=== PATIENT | female | born 1965 | race Caucasian/White ===

== ENCOUNTER 2016-12-31 16:29 | Emergency (ER) | payer MEDICARE, MEDICAID ==
[2016-12-31] MEDS ORDERED: CEFTRIAXONE SODIUM 1 GM in IV NORMAL SALINE 50ML 50 ML IV ONE (17:00)
--- NOTE | 2016-12-31 17:12 | ED.ADGEN ---
Adult General HPI HPI Patient is a 51-year-old female with a history of chronic kidney disease was seen by a cancer genetic counselor earlier today and diagnosed with a urinary tract infection. He is asked to come to the emergency department so she can receive her first dose of antibiotics by IV. He is also present requested a noncontrast CT to rule out kidney stone due to her right flank pain. Patient had taken her usual home oxycodone for her chronic pain without much relief. She denies any fevers, chills, nausea, vomiting. Review of Systems Review of Systems Constitutional: Denies fever or chills [] Eyes: Denies change in visual acuity, redness, or eye pain [] HENT: Denies nasal congestion or sore throat [] Respiratory: Denies cough or shortness of breath [] Cardiovascular: No additional information not addressed in HPI [] GI: Denies abdominal pain, nausea, vomiting, bloody stools or diarrhea [] : Denies dysuria or hematuria [] Musculoskeletal: Denies back pain or joint pain [] Integument: Denies rash or skin lesions [] Neurologic: Denies headache, focal weakness or sensory changes [] Endocrine: Denies polyuria or polydipsia [] Current Medications Current Medications Current Medications Medications (Trade) Dose Ordered Sig/Adrian Start Time Stop Time Status Last Admin Dose Admin Ceftriaxone Sodium 1 gm/ Sodium Chloride 50 ml @ 100 mls/hr 1X ONCE 12/31/16 17:00 12/31/16 17:21 DC Hydromorphone HCl 1 mg 1 mg 1X ONCE 12/31/16 17:30 12/31/16 17:31 DC Levofloxacin/ Dextrose (LEVAQUIN 500mg PREMIX) 100 ml @ 100 mls/hr 1X ONCE 12/31/16 17:45 12/31/16 18:44 Sodium Chloride 1,000 ml @ 1,000 mls/hr 1X ONCE 12/31/16 17:30 12/31/16 18:29 Allergies Allergies Allergies Coded Allergies Type Severity Reaction Last Updated Verified Cephalosporins Allergy Unknown 12/31/16 Yes Penicillins Allergy Unknown 12/31/16 Yes acetaminophen Allergy Unknown 12/31/16 Yes amitriptyline Allergy Unknown 12/31/16 Yes carbamazepine Allergy Unknown 12/31/16 Yes codeine Allergy Unknown 12/31/16 Yes hydrocodone Allergy Unknown 12/31/16 Yes ketorolac Allergy Unknown 12/31/16 Yes oxcarbazepine Allergy Unknown 12/31/16 Yes quetiapine Allergy Unknown 12/31/16 Yes tramadol Allergy Unknown 12/31/16 Yes Physical Exam Physical Exam Constitutional: Well developed, well nourished, no acute distress, non-toxic appearance. [] HENT: Normocephalic, atraumatic, bilateral external ears normal, oropharynx moist, no oral exudates, nose normal. [] Eyes: PERRLA, EOMI, conjunctiva normal, no discharge. [] Neck: Normal range of motion, no tenderness, supple, no stridor. [] Cardiovascular:Heart rate regular rhythm, no murmur [] Lungs & Thorax: Bilateral breath sounds clear to auscultation [] Abdomen: Bowel sounds normal, soft, no tenderness, no masses, no pulsatile masses. [] Skin: Warm, dry, no erythema, no rash. [] Back: Right flank tenderness, no CVA tenderness. [] Extremities: No tenderness, no cyanosis, no clubbing, ROM intact, no edema. [] Neurologic: Alert and oriented X 3, normal motor function, normal sensory function, no focal deficits noted. [] Psychologic: Affect normal, judgement normal, mood normal. [] EKG EKG [] Radiology/Procedures Radiology/Procedures [PROCEDURE CT scan of the abdomen and pelvis without contrast 12/31/2016 HISTORY Right flank pain for 1 day. TECHNIQUE Unenhanced contiguous, 5 millimeter axial sections were obtained through the abdomen and pelvis. One or more of the following individualized dose reduction techniques were utilized for this study: 1. Automated exposure control. 2. Adjustment of the mA and/or kV according to patient size. 3. Use of iterative reconstruction technique. FINDINGS Images through the lung bases demonstrate minimal dependent subsegmental atelectasis bilaterally. The liver, spleen, pancreas, and adrenal glands are within normal limits. No renal or ureteral calculus is seen. A 7 millimeter rounded low attenuation structure is seen projecting laterally from the inferior aspect of the lower pole of the left kidney. This likely represents a cyst. There is no evidence of obstruction of either collecting system. Mild scattered atherosclerotic plaque formation is seen involving the abdominal aorta and its branches. The abdominal aorta tapers normally. The gallbladder is slightly contracted. No free fluid or free air is seen within the abdomen. There is no evidence of bowel obstruction. The appendix is not visualized. No inflammatory changes are seen surrounding the cecum. Images through the pelvis demonstrate the urinary bladder distended with urine. No distal ureteral calculus is seen. The patient is status post ventral hernia repair involving the lower midline abdomen. A small fat containing ventral hernia is seen inferior to this to the right of midline. This measures 3 centimeters in transverse diameter. No free fluid is seen within the pelvis. A few scattered diverticula are seen involving the sigmoid colon. No inflammatory changes are seen adjacent fat. Minimal S-shaped curvature of the thoracolumbar spine is seen. Degenerative changes are seen involving lower thoracic and throughout the lumbar spine and both hips. IMPRESSION No acute abnormality is seen. Electronically signed by: Lavon Brooks MD (Dec 31, 2016 17:26:23) DICTATED AND SIGNED BY: LAVON BROOKS MD DATE: 12/31/16 1726 CC: CARLOS MEZA MD; AIXA ROCHA MD ~] Course & Med Decision Making Course & Med Decision Making Pertinent Labs and Imaging studies reviewed. (See chart for details) Patient received IV fluids, Dilaudid, and Levaquin here in emergency department. We did get a CT scan without contrast. [] Final Impression Final Impression Urinary tract infection[] Problems: Dragon Disclaimer Dragon Disclaimer This electronic medical record was generated, in whole or in part, using a voice recognition dictation system. CARLOS MEZA MD Dec 31, 2016 17:12
--- NOTE | 2016-12-31 17:28 | RAD ---
PROCEDURE CT scan of the abdomen and pelvis without contrast 12/31/2016 HISTORY Right flank pain for 1 day. TECHNIQUE Unenhanced contiguous, 5 millimeter axial sections were obtained through the abdomen and pelvis. One or more of the following individualized dose reduction techniques were utilized for this study: 1. Automated exposure control. 2. Adjustment of the mA and/or kV according to patient size. 3. Use of iterative reconstruction technique. FINDINGS Images through the lung bases demonstrate minimal dependent subsegmental atelectasis bilaterally. The liver, spleen, pancreas, and adrenal glands are within normal limits. No renal or ureteral calculus is seen. A 7 millimeter rounded low attenuation structure is seen projecting laterally from the inferior aspect of the lower pole of the left kidney. This likely represents a cyst. There is no evidence of obstruction of either collecting system. Mild scattered atherosclerotic plaque formation is seen involving the abdominal aorta and its branches. The abdominal aorta tapers normally. The gallbladder is slightly contracted. No free fluid or free air is seen within the abdomen. There is no evidence of bowel obstruction. The appendix is not visualized. No inflammatory changes are seen surrounding the cecum. Images through the pelvis demonstrate the urinary bladder distended with urine. No distal ureteral calculus is seen. The patient is status post ventral hernia repair involving the lower midline abdomen. A small fat containing ventral hernia is seen inferior to this to the right of midline. This measures 3 centimeters in transverse diameter. No free fluid is seen within the pelvis. A few scattered diverticula are seen involving the sigmoid colon. No inflammatory changes are seen adjacent fat. Minimal S-shaped curvature of the thoracolumbar spine is seen. Degenerative changes are seen involving lower thoracic and throughout the lumbar spine and both hips. IMPRESSION No acute abnormality is seen. Electronically signed by: Lavon Schwartz MD (Dec 31, 2016 17:26:23)
[2016-12-31] MEDS ORDERED: HYDROMORPHONE PF 1 MG/ML DISP.SYRIN. IV ONE (17:30)
[2016-12-31] MEDS ORDERED: IV NORMAL SALINE 1,000ML 1,000 ML IV ONE (17:30)
[2016-12-31] MEDS ORDERED: CIPR500T94 PO (17:30)
[2016-12-31 18:51] VITALS: BP 118/69
== END 2016-12-31 18:52 | disposition home or self-care (01) ==
LOC: ER 16:29
DX: N39.0 Urinary tract infection, site not specified (principal); N18.9 Chronic kidney disease, unspecified; G89.29 Other chronic pain; Z88.0 Allergy status to penicillin; Z88.6 Allergy status to analgesic agent; Z88.1 Allergy status to other antibiotic agents; Z88.8 Allergy status to other drugs, medicaments and biological substances
CPT/HCPCS: 74176; 96365; 96375; 99284; J1170; J1956; 96361; 96374; J7030

== ENCOUNTER → 2017-08-07 | Outpatient (CLI) | payer MEDICARE, MEDICAID ==
[~2017-08-07] MED LIST: BUPIVACAINE MPF 0.25% 10 ML VIAL. ONE; CIPR500T94 PO; IV NORMAL SALINE 250ML 250 ML ONE; LIDOCAINE 1% PF 30 ML VIAL. ONE; MIDAZOLAM HCL PF 2 MG/2 ML VIAL. ONE; methylPREDNISolone ACETATE 40 MG/ML VIAL. ONE
== END | disposition home or self-care (01) ==
LOC: SURG 10:53
PROVIDERS: ATTEND Anesthesiology Pain Medicine
DX: M47.814 Spondylosis without myelopathy or radiculopathy, thoracic region (principal); E66.9 Obesity, unspecified; J44.9 Chronic obstructive pulmonary disease, unspecified; I10 Essential (primary) hypertension; I12.9 Hypertensive chronic kidney disease with stage 1 through stage 4 chronic kidney disease, or unspecified chronic kidney disease; N18.9 Chronic kidney disease, unspecified; Z72.0 Tobacco use
CPT/HCPCS: 64633; 64634; J1030; J2001; J2250; J3010; J3490; J7050; 64635; 64636

== ENCOUNTER → 2017-08-28 | Outpatient (CLI) | payer MEDICARE, MEDICAID ==
[~2017-08-28] MED LIST changes: -IV NORMAL SALINE 250ML 250 ML ONE; +IV RINGERS SOLUTION,LACTATED 1,000 ML IV ONE
== END | disposition home or self-care (01) ==
LOC: SURG 10:55
PROVIDERS: ATTEND Anesthesiology Pain Medicine
DX: M47.814 Spondylosis without myelopathy or radiculopathy, thoracic region (principal); E78.5 Hyperlipidemia, unspecified; N18.4 Chronic kidney disease, stage 4 (severe); Z98.890 Other specified postprocedural states; Z88.6 Allergy status to analgesic agent; Z88.3 Allergy status to other anti-infective agents; Z88.0 Allergy status to penicillin; Z88.8 Allergy status to other drugs, medicaments and biological substances
CPT/HCPCS: 64635; 64636; J1030; J2001; J2250; J3010; J3490; J7120; 99152

== ENCOUNTER → 2018-04-20 | Outpatient (CLI) | payer OTHER ==
[~2018-04-20] MED LIST changes: +IOHEXOL 300 MG/ML 50 ML VIAL. ONE; -IV RINGERS SOLUTION,LACTATED 1,000 ML IV ONE; -MIDAZOLAM HCL PF 2 MG/2 ML VIAL. ONE
== END | disposition home or self-care (01) ==
LOC: SURG 12:19
PROVIDERS: ATTEND Anesthesiology
DX: M46.1 Sacroiliitis, not elsewhere classified (principal); J45.909 Unspecified asthma, uncomplicated; Z87.01 Personal history of pneumonia (recurrent); Z87.891 Personal history of nicotine dependence; Z79.899 Other long term (current) drug therapy
CPT/HCPCS: 27096; J1030; J2001; J3490; Q9967

== ENCOUNTER → 2018-06-02 | Outpatient (CLI) | payer OTHER ==
[~2018-06-02] MED LIST changes: -BUPIVACAINE MPF 0.25% 10 ML VIAL. ONE; +BUPIVACAINE MPF 0.5% 30 ML VIAL. ONE; +methylPREDNISolone ACETATE 80 MG/ML VIAL. ONE
== END | disposition home or self-care (01) ==
LOC: SURG 14:21
PROVIDERS: ATTEND Anesthesiology Pain Medicine
DX: M16.11 Unilateral primary osteoarthritis, right hip (principal); M47.816 Spondylosis without myelopathy or radiculopathy, lumbar region; M46.1 Sacroiliitis, not elsewhere classified; I10 Essential (primary) hypertension; J44.9 Chronic obstructive pulmonary disease, unspecified; G47.30 Sleep apnea, unspecified; K21.9 Gastro-esophageal reflux disease without esophagitis; Z87.01 Personal history of pneumonia (recurrent); M19.90 Unspecified osteoarthritis, unspecified site; D64.9 Anemia, unspecified; Z88.0 Allergy status to penicillin; Z88.5 Allergy status to narcotic agent; Z88.1 Allergy status to other antibiotic agents; Z88.8 Allergy status to other drugs, medicaments and biological substances
CPT/HCPCS: 20610; 77002; J1030; J1040; J2001; J3490; Q9967; 20611

== ENCOUNTER → 2018-07-07 | Outpatient (CLI) | payer OTHER ==
[~2018-07-07] MED LIST changes: +0.9 % SODIUM CHLORIDE 10 ML VIAL ONE; +BUPIVACAINE MPF 0.25% 30 ML VIAL. ONE; -BUPIVACAINE MPF 0.5% 30 ML VIAL. ONE; +DEXAMETHASONE SOD PHOS 10 MG/ML VIAL ONE; -methylPREDNISolone ACETATE 40 MG/ML VIAL. ONE; -methylPREDNISolone ACETATE 80 MG/ML VIAL. ONE
== END | disposition home or self-care (01) ==
LOC: SURG 14:29
PROVIDERS: ATTEND Anesthesiology Pain Medicine
DX: M54.16 Radiculopathy, lumbar region (principal); F31.9 Bipolar disorder, unspecified; E78.5 Hyperlipidemia, unspecified; K21.9 Gastro-esophageal reflux disease without esophagitis; J44.9 Chronic obstructive pulmonary disease, unspecified; I12.9 Hypertensive chronic kidney disease with stage 1 through stage 4 chronic kidney disease, or unspecified chronic kidney disease; N18.4 Chronic kidney disease, stage 4 (severe); Z90.710 Acquired absence of both cervix and uterus; Z83.3 Family history of diabetes mellitus; Z79.899 Other long term (current) drug therapy; Z79.01 Long term (current) use of anticoagulants; Z88.5 Allergy status to narcotic agent; Z88.0 Allergy status to penicillin; Z88.1 Allergy status to other antibiotic agents; Z88.8 Allergy status to other drugs, medicaments and biological substances; Z88.6 Allergy status to analgesic agent; G47.30 Sleep apnea, unspecified; Z87.01 Personal history of pneumonia (recurrent); I25.2 Old myocardial infarction; M19.90 Unspecified osteoarthritis, unspecified site; D64.9 Anemia, unspecified
CPT/HCPCS: 64483; 64484; J1100; J2001; J3490; Q9967

== ENCOUNTER → 2018-08-27 | Outpatient (CLI) | payer OTHER ==
[~2018-08-27] MED LIST changes: -0.9 % SODIUM CHLORIDE 10 ML VIAL ONE; -DEXAMETHASONE SOD PHOS 10 MG/ML VIAL ONE; +DEXAMETHASONE SOD PHOS 4 MG/ML VIAL ONE; -IOHEXOL 300 MG/ML 50 ML VIAL. ONE
== END | disposition home or self-care (01) ==
LOC: SURG 11:19
PROVIDERS: ATTEND Anesthesiology Pain Medicine
DX: M47.816 Spondylosis without myelopathy or radiculopathy, lumbar region (principal); J45.909 Unspecified asthma, uncomplicated; J44.9 Chronic obstructive pulmonary disease, unspecified; G47.30 Sleep apnea, unspecified; I10 Essential (primary) hypertension; K21.9 Gastro-esophageal reflux disease without esophagitis; N19 Unspecified kidney failure; Z79.899 Other long term (current) drug therapy
CPT/HCPCS: 64493; 64494; 64495; J1100; J2001; J3490

== ENCOUNTER → 2018-09-10 | Outpatient (CLI) | payer OTHER | END | disposition home or self-care (01) | LOC: SURG 11:17 | PROVIDERS: ATTEND Anesthesiology Pain Medicine | DX: M47.816 Spondylosis without myelopathy or radiculopathy, lumbar region (principal); Z88.0 Allergy status to penicillin; Z88.1 Allergy status to other antibiotic agents; Z88.5 Allergy status to narcotic agent; Z88.8 Allergy status to other drugs, medicaments and biological substances; F31.9 Bipolar disorder, unspecified; E78.5 Hyperlipidemia, unspecified; N18.4 Chronic kidney disease, stage 4 (severe); Z90.710 Acquired absence of both cervix and uterus; Z83.3 Family history of diabetes mellitus; Z79.899 Other long term (current) drug therapy; Z79.01 Long term (current) use of anticoagulants | CPT/HCPCS: 64493; 64494; J1100; J2001; J3490; 77002 ==

== ENCOUNTER → 2018-10-22 | Day surgery (SDC) | payer OTHER ==
[~2018-10-22] MED LIST changes: +ALBU2.5V8 INH; +ALLO100T PO; +ALPR0.5T6 PO; +ARIP30TA4 PO; +ASPI81TA50 PO; +BUPIVACAINE MPF 0.25% 10 ML VIAL. ONE; -BUPIVACAINE MPF 0.25% 30 ML VIAL. ONE; -DEXAMETHASONE SOD PHOS 4 MG/ML VIAL ONE; +FENO145T30 PO; +LAMO200T2 PO; +METO25TA4 PO; +MIDAZOLAM HCL PF 2 MG/2 ML VIAL. IV ONE; +MIDAZOLAM HCL PF 2 MG/2 ML VIAL. ONE; +MIRA50TA PO; +MONT10TA9 PO; +OXYC10TA PO; +POTA20TA4 PO; +RANI150T21 PO; +SIMV80TA17 PO; +TOPI25TA7 PO; +TORS20TA2 PO; +VENL150C PO; +WARF2TAB PO; +ZALE5CAP PO; +methylPREDNISolone ACETATE 40 MG/ML VIAL. ONE
[2018-10-22 09:29] VITALS: BP 114/76
== END | disposition home or self-care (01) ==
LOC: SURG 07:30
PROVIDERS: ATTEND Anesthesiology Pain Medicine
DX: M47.816 Spondylosis without myelopathy or radiculopathy, lumbar region (principal); F31.9 Bipolar disorder, unspecified; E78.5 Hyperlipidemia, unspecified; I12.9 Hypertensive chronic kidney disease with stage 1 through stage 4 chronic kidney disease, or unspecified chronic kidney disease; N18.4 Chronic kidney disease, stage 4 (severe); I25.2 Old myocardial infarction; J44.9 Chronic obstructive pulmonary disease, unspecified; Z90.710 Acquired absence of both cervix and uterus; Z83.3 Family history of diabetes mellitus; Z79.899 Other long term (current) drug therapy; Z79.01 Long term (current) use of anticoagulants; Z88.0 Allergy status to penicillin; Z88.1 Allergy status to other antibiotic agents; Z88.6 Allergy status to analgesic agent; Z88.8 Allergy status to other drugs, medicaments and biological substances; Z88.5 Allergy status to narcotic agent; G47.30 Sleep apnea, unspecified; Z87.01 Personal history of pneumonia (recurrent); M19.90 Unspecified osteoarthritis, unspecified site; D64.9 Anemia, unspecified; F17.210 Nicotine dependence, cigarettes, uncomplicated
CPT/HCPCS: 64635; 64636; 99152; J1030; J2001; J2250; J3010; J3490

== ENCOUNTER 2021-01-11 16:32 | Emergency (ER) | payer OTHER, MEDICAID ==
[~2021-01-11] VITALS: Ht 162.6 cm; Wt 138.1 kg
[~2021-01-11 16:32] MED LIST changes: -BUPIVACAINE MPF 0.25% 10 ML VIAL. ONE; +FENO145T3 PO; -FENO145T30 PO; -LAMO200T2 PO; +LAMO200T6 PO; -LIDOCAINE 1% PF 30 ML VIAL. ONE; -MIDAZOLAM HCL PF 2 MG/2 ML VIAL. IV ONE; -MIDAZOLAM HCL PF 2 MG/2 ML VIAL. ONE; +MIRA25TA PO; -MIRA50TA PO; +MONT10TA80 PO; -MONT10TA9 PO; +RANI-376 PO; -RANI150T21 PO; -methylPREDNISolone ACETATE 40 MG/ML VIAL. ONE
--- NOTE | 2021-01-11 17:09 | PHYS DOC ---
Past History Past Medical History: Anxiety, Renal Disease, Other Past Surgical History: Hysterectomy, Other Alcohol Use: Rarely Drug Use: None General Adult EDM: Chief Complaint: ELBOW PROBLEM HPI: HPI: Patient is a 55-year-old female coming in for right elbow pain. States she felt forward onto her elbows 2 days ago" of her elbows. Denies any head injury or LOC. Patient's has an abrasion to her left elbow but is continued to have pain in her right elbow that is not getting better. Patient is taking Tylenol. Denies any paresthesias. Patient is right-handed. Is unsure of her last tetanus vaccine but thinks it might have been more than 5 years ago Review of Systems: Review of Systems: All other systems within normal limits except for as noted in the HPI Allergies: Allergies: Allergies Coded Allergies Type Severity Reaction Last Updated Verified Cephalosporins Allergy Unknown 12/31/16 Yes Penicillins Allergy Unknown 12/31/16 Yes acetaminophen Allergy Unknown 12/31/16 Yes amitriptyline Allergy Unknown 12/31/16 Yes carbamazepine Allergy Unknown 12/31/16 Yes codeine Allergy Unknown 12/31/16 Yes hydrocodone Allergy Unknown 12/31/16 Yes ketorolac Allergy Unknown 12/31/16 Yes oxcarbazepine Allergy Unknown 12/31/16 Yes quetiapine Allergy Unknown 12/31/16 Yes tramadol Allergy Unknown 12/31/16 Yes Physical Exam: PE: Constitutional: Well developed, well nourished, no acute distress, non-toxic appearance. [] HENT: Normocephalic, atraumatic, bilateral external ears normal, nose normal. [] Eyes: PERRLA, conjunctiva normal, no discharge. [] Neck: No rigidity, supple, no stridor. [] Cardiovascular: Regular rate and rhythm, brisk cap refill [] Lungs & Thorax: Non labored symmetric respirations, no tachypnea or respiratory distress [] Abdomen: Soft, nondistended. Skin: Warm, dry, no erythema, no rash. Abrasion to left elbow [] Back: Unremarkable Extremities: No deformities, range of motion grossly intact, no lower extremity edema. Right elbow exam, tenderness over olecranon, mild swelling. Neurovascular intact distal. [] Neurologic: Alert and oriented X 3, no focal deficits noted. [] Psychologic: Affect normal, judgement normal, mood normal. [] EKG: EKG: [] Radiology/Procedures: Radiology/Procedures: EXAM: Right elbow, 3 views. HISTORY: Pain and swelling. COMPARISON: None. FINDINGS: 3 views of the right elbow are obtained. There aren't small ossicles along the lateral upper condyle likely due to sequela of prior epicondylitis. There is no acute fracture, dislocation or subluxation. There is no elbow effusion. IMPRESSION: 1. No acute osseous finding. 2. Findings suggesting the sequela of prior lateral epicondylitis.[] Heart Score: C/O Chest Pain: No Risk Factors: Risk Factors: DM, Current or recent (<one month) smoker, HTN, HLP, family history of CAD, obesity. Risk Scores: Score 0 - 3: 2.5% MACE over next 6 weeks - Discharge Home Score 4 - 6: 20.3% MACE over next 6 weeks - Admit for Clinical Observation Score 7 - 10: 72.7% MACE over next 6 weeks - Early Invasive Strategies Course & Med Decision Making: Course & Med Decision Making Pertinent Labs and Imaging studies reviewed. (See chart for details) Placed in sling, patient has full range of motion of her elbow. Tetanus updated. Discussed follow-up with primary care. Radiologist reading x-rays as no acute fracture. [] Dragon Disclaimer: Dragon Disclaimer: This electronic medical record was generated, in whole or in part, using a voice recognition dictation system. Departure Departure: Impression: Primary Impression: Fall Additional Impression: Injury of right elbow Disposition: HOME / SELF CARE / HOMELESS Condition: STABLE Referrals: VINEET BREWER MD (PCP) Patient Instructions: RICE - Routine Care for Injuries Additional Instructions: Wear your sling as much as tolerated. May take off if pain resolves. Follow-up with your primary care provider if pain has not resolved to rule out the possibility of occult fracture and have repeat imaging done in 1 week. Scripts Morphine Sulfate (MORPHINE SULFATE) 15 Mg Tablet 1 TAB PO BID PRN for PAIN for 3 Days, #6 TAB Prov: YISEL PLATT MD 01/11/21 YISEL PLATT MD Jan 11, 2021 17:09
--- NOTE | 2021-01-11 17:21 | RAD ---
EXAM: Right elbow, 3 views. HISTORY: Pain and swelling. COMPARISON: None. FINDINGS: 3 views of the right elbow are obtained. There aren't small ossicles along the lateral uppe r condyle likely due to sequela of prior epicondylitis. There is no acute fracture, dislocation or chery bluxation. There is no elbow effusion. IMPRESSION: 1. No acute osseous finding. 2. Findings suggesting the sequela of prior lateral epicondylitis. Electronically signed by: Leah Vick MD (01/11/2021 5:18 PM) [facility]
[2021-01-11] MEDS ORDERED: DIPH,PERTUSS(ACELL),TET VAC/PF 0.5 ML SYRINGE. VAX IM ONE (17:30)
[2021-01-11] MEDS ORDERED: MORP15TA PO (17:44)
[2021-01-11 17:49] VITALS: BP 132/85
== END 2021-01-11 17:49 | disposition home or self-care (01) ==
LOC: ER 16:32
DX: S50.311A Abrasion of right elbow, initial encounter (principal); Z88.0 Allergy status to penicillin; Z88.5 Allergy status to narcotic agent; Z88.6 Allergy status to analgesic agent; Z88.8 Allergy status to other drugs, medicaments and biological substances; W18.39XA Other fall on same level, initial encounter; Y93.89 Activity, other specified; Y92.89 Other specified places as the place of occurrence of the external cause; Y99.8 Other external cause status
CPT/HCPCS: 73080; 90471; 90715; 96374; 96375; 99283

== ENCOUNTER 2021-05-24 14:57 | Emergency (ER) | payer OTHER, MEDICAID ==
[~2021-05-24] VITALS: Ht 160 cm; Wt 137.3 kg
[~2021-05-24 14:57] MED LIST changes: +MORP15TA PO
[2021-05-24 15:11] VITALS: BP 151/73
--- NOTE | 2021-05-24 15:25 | PHYS DOC ---
Past History Past Medical History: Anxiety, Bipolar, Depression, Hypertension, Renal Disease, Other Additional Past Medical Histor: stage 4 kidney disease (DEBORA DAVID APRN) Past Surgical History: No Surgical History Additional Past Surgical Histo: right knee (DEBORA DAVID APRN) Alcohol Use: None Drug Use: None (DEBORA DAVID APRN) General Adult EDM: Chief Complaint: FEVER HPI: HPI: Patient is a 56-year-old female being seen in the ER for a fever for 3 hours. Patient reports that she checked her temperature at home and it was 101 degrees so she took Tylenol. She was told by her primary care provider that since she h as stage IV kidney disease if she develops a fever she must go to the ER. Patient is currently afebrile. Her vital signs are stable. Patient denies cough, sick exposures, nausea, vomiting, loss of taste or smell, shortness of breath, chest pain. Patient is vaccinated for COVID-19. (DEBORA DAVID APRN) Review of Systems: Review of Systems: 14 body systems of the review of systems have been reviewed. See HPI for pertinent positive and negative responses, otherwise all other systems are negative, nonpertinent or noncontributory (DEBORA DAVID APRN) Allergies: Allergies: Allergies Coded Allergies Type Severity Reaction Last Updated Verified Cephalosporins Allergy Unknown 12/31/16 Yes NSAIDS (Non-Steroidal Anti-Inflamma Allergy Unknown 01/11/21 Yes Penicillins Allergy Unknown 01/11/21 Yes acetaminophen Allergy Unknown 12/31/16 Yes amitriptyline Allergy Unknown 12/31/16 Yes carbamazepine Allergy Unknown 01/11/21 Yes codeine Allergy Unknown 01/11/21 Yes hydrocodone Allergy Unknown 12/31/16 Yes ketorolac Allergy Unknown 12/31/16 Yes oxcarbazepine Allergy Unknown 12/31/16 Yes quetiapine Allergy Unknown 12/31/16 Yes tramadol Allergy Unknown 12/31/16 Yes Uncoded Allergies Type Severity Reaction Last Updated Verified POLYSORBATES Allergy Unknown 01/11/21 RED DYES Allergy Unknown 01/11/21 TARTRAZINE Allergy Unknown 01/11/21 TRICYCLIC ANTIDEPRESSANTS Allergy Unknown 01/11/21 (DEBORA DAVID APRN) Physical Exam: PE: Constitutional: Well developed, well nourished, no acute distress, non-toxic appearance. [] HENT: Normocephalic, atraumatic, bilateral external ears normal, oropharynx moist, no oral exudates, nose normal. [] Eyes: PERRL, EOMI, conjunctiva normal, no discharge. [] Neck: Normal range of motion, no stridor Cardiovascular:Heart rate regular rhythm, no murmur [] Lungs & Thorax: Bilateral breath sounds clear to auscultation [] Abdomen: Bowel sounds normal, soft, no tenderness, no masses, no pulsatile masses. [] Skin: Warm, dry, no erythema, no rash. [] Back: Normal range of motion Extremities: No tenderness, no cyanosis, no clubbing, ROM intact, no edema. [] Neurologic: Alert and oriented X 3, normal motor function, normal sensory function, no focal deficits noted. [] Psychologic: Affect normal, judgement normal, mood normal. [] (DEBORA DAVID APRN) Current Patient Data: Labs: Laboratory Tests Test 05/24/21 15:25 White Blood Count 8.4 x10^3/uL Red Blood Count 3.53 x10^6/uL Hemoglobin 11.6 g/dL Hematocrit 34.3 % Mean Corpuscular Volume 97 fL Mean Corpuscular Hemoglobin 33 pg Mean Corpuscular Hemoglobin Concent 34 g/dL Red Cell Distribution Width 13.7 % Platelet Count 223 x10^3/uL Neutrophils (%) (Auto) 61 % Lymphocytes (%) (Auto) 27 % Monocytes (%) (Auto) 8 % Eosinophils (%) (Auto) 4 % Basophils (%) (Auto) 1 % Neutrophils # (Auto) 5.1 x10^3uL Lymphocytes # (Auto) 2.3 x10^3/uL Monocytes # (Auto) 0.7 x10^3/uL Eosinophils # (Auto) 0.3 x10^3/uL Basophils # (Auto) 0.1 x10^3/uL Sodium Level 129 mmol/L Potassium Level 3.7 mmol/L Chloride Level 91 mmol/L Carbon Dioxide Level 34 mmol/L Anion Gap 4 Blood Urea Nitrogen 63 mg/dL Creatinine 2.5 mg/dL Estimated GFR (Cockcroft-Gault) 19.8 BUN/Creatinine Ratio 25 Glucose Level 95 mg/dL Calcium Level 9.2 mg/dL Total Bilirubin 0.4 mg/dL Aspartate Amino Transf (AST/SGOT) 36 U/L Alanine Aminotransferase (ALT/SGPT) 47 U/L Alkaline Phosphatase 74 U/L Total Protein 6.5 g/dL Albumin 3.4 g/dL Albumin/Globulin Ratio 1.1 Vital Signs: Vital Signs Date Time Temp Pulse Resp B/P (MAP) Pulse Ox O2 Delivery O2 Flow Rate FiO2 05/24/21 15:11 98.4 85 16 151/73 94 Room Air (DEBORA DAVID APRN) EKG: EKG: [] (DEBORA DAVID APRN) Radiology/Procedures: Radiology/Procedures: [] (DEBORA DAVID APRN) Heart Score: C/O Chest Pain: No Risk Factors: Risk Factors: DM, Current or recent (<one month) smoker, HTN, HLP, family history of CAD, obesity. Risk Scores: Score 0 - 3: 2.5% MACE over next 6 weeks - Discharge Home Score 4 - 6: 20.3% MACE over next 6 weeks - Admit for Clinical Observation Score 7 - 10: 72.7% MACE over next 6 weeks - Early Invasive Strategies (DEBORA DAVID APRN) Course & Med Decision Making: Course & Med Decision Making Pertinent Labs and Imaging studies reviewed. (See chart for details) Patient is a 56-year-old female being seen in the ER for a fever. Work-up in the ER consisted of Covid testing. Patient will be notified of those results when they become available. Patient also had blood work done. Lab work was consistent with renal failure. Patient is able to tolerate fluids. Patient advised to increase fluids and rest. Patient advised to take Tylenol if she develops a fever at home. Patient advised to follow-up with primary care provider. I discussed with patient all findings and diagnostic testing as well as the need to follow-up with PCP for further evaluation and treatment or return to the ER if any new or worsening symptoms. Strict return precautions were also discussed at length. Patient voiced understanding and agreement with the plan. Patient is hemodynamically stable at the time of disposition. (DEBORA DAVID APRN) Course & Med Decision Making I was the Attending physician on the above date of service of this patient. This patient was evaluated, examined, treated, and dispositioned from the emergency department by the mid-level practitioner. I reviewed case with SHREDDER OPERATOR. Patient hemodynamically stable and asymptomatic. Kidney disease is chronic. No indication for further diagnostic work-up and/or requirement for admission at present Electronically signed, Red Martin DO (RED MARTIN DO) Renetta Disclaimer: Renetta Disclaimer: This electronic medical record was generated, in whole or in part, using a voice recognition dictation system. (DEBORA DAVID MANAGER FITNESS) Departure Departure: Impression: Primary Impression: Person under investigation for COVID-19 Additional Impression: Chronic renal failure Qualified Codes: N18.9 - Chronic kidney disease, unspecified Disposition: HOME / SELF CARE / HOMELESS Condition: GOOD Referrals: VINEET BREWER MD (PCP) Patient Instructions: Fever Additional Instructions: You are seen in the ER today for fever. Your vital signs were stable and your afebrile here. Your work-up is consistent with chronic renal failure. You were tested today for COVID-19. You will be notified of these results when they become available in approximately 2 days. Please self isolate until you receive these results. Please increase your fluids at home. You can continue to take Tylenol as needed for fevers at home. You will need to follow-up with your primary care provider tomorrow regarding your ER visit. If you develop fevers that are refractory to treatment, intractable nausea or vomiting, inability to tolerate oral intake, shortness of breath, chest pain, cough please return to the ER. EMERGENCY DEPARTMENT GENERAL DISCHARGE INSTRUCTIONS Thank you for coming to [facility] ([facility]) today and trusting us with you care. We trust that you had a positivie experience in our Emergency Department. If you wish to speak to the department management, you may call the director at [phone]. YOUR FOLLOW UP INSTRUCTIONS ARE FOLLOWS: 1. Do you have a private Doctor? If you do not have a private doctor, please ask for a resource list of physicians or clinics that may be able to assist you with follow up care. 2. The Emergency Physician has interpreted your x-rays. The X-Ray specialist will also review them. If there is a change in the findings, you will be notified in 48 hours when at all possible. 3. A lab test or culture has been done, your results will be reviewed and you will be notified if you need a change in treatment. ADDITIONAL INSTRUCTIONS AND INFORMATION: 1. Your care today has been supervised by a physician who is specially trained in emergency care. Many problems require more than one evaluation for a complete diagnosis and treatment. We recommend that you schedule your follow up appointment as recommended to ensure complete treatment of you illness or injury. If you are unable to obtain follow up care and continue to have a problem, or if your condition worsens, we recommend that you return to the ED. 2. We are not able to safely determine your condition over the phone nor are we able to give sound medical advice over the phone. For these safety reasons, if you call for medical advice we will ask you to come to the ED for further evaluation. 3. If you have any questions regarding these discharge instructions please call the ED at [phone]. SAFETY INFORMATION: In the interest of safety, wellness, and injury prevention; we encourage you to wear your sealbelt, if you smoke; quite smoking, and we encourage family to use a p rotective helmet for bicycling and other sporting events that present an increased risk for head injury. IF YOUR SYMPTOMS WORSEN OR NEW SYMPTOMS DEVELOP, OR YOU HAVE CONCERNS ABOUT YOUR CONDITION; OR IF YOUR CONDITION WORSENS WHILE YOU ARE WAITING FOR YOUR FOLLOW UP APPOINTMENT; EITHER CONTACT YOUR PRIMARY CARE DOCTOR, THE PHYSICIAN WHOSE NAME AND NUMBER YOU WERE GIVEN, OR RETURN TO THE ED IMMEDIATELY. DEBORA DAVID APRN May 24, 2021 15:25 RED MARTIN DO May 25, 2021 06:15
[2021-05-24 15:42] LABS: BASO # 0.1 x10^3/uL (0.0-0.2); BASO % 1 % (0-3); EOS # 0.3 x10^3/uL (0.0-0.7); EOS % 4 % (0-3); HEMATOCRIT 34.3 % (36.0-47.0); HEMOGLOBIN 11.6 g/dL (12.0-15.5); LYMPH # 2.3 x10^3/uL (1.0-4.8); LYMPH % 27 % (24-48); MEAN CORPUSCULAR HEMOGLOBIN 33 pg (25-35); MEAN CORPUSCULAR HGB CONC 34 g/dL (31-37); MEAN CORPUSCULAR VOLUME 97 fL (79-100); MONO # 0.7 x10^3/uL (0.0-1.1); MONO % 8 % (0-9); NEUT # 5.1 x10^3uL (1.8-7.7); NEUT % 61 % (31-73); PLATELET COUNT 223 x10^3/uL (140-400); RED BLOOD COUNT 3.53 x10^6/uL (3.50-5.40); RED CELL DISTRIBUTION WIDTH 13.7 % (11.5-14.5); WHITE BLOOD COUNT 8.4 x10^3/uL (4.0-11.0)
[2021-05-24 15:49] LABS: CALCIUM 9.2 mg/dL (8.5-10.1); CREATININE 2.5 mg/dL (0.6-1.0); GFR 19.8; POTASSIUM 3.7 mmol/L (3.5-5.1)
[2021-05-24 15:53] LABS: ALBUMIN 3.4 g/dL (3.4-5.0); ALBUMIN/GLOBULIN RATIO 1.1 (1.0-1.7); TOTAL BILIRUBIN 0.4 mg/dL (0.2-1.0); TOTAL PROTEIN 6.5 g/dL (6.4-8.2)
== END 2021-05-24 16:12 | disposition home or self-care (01) ==
LOC: ER 14:57
DX: I12.9 Hypertensive chronic kidney disease with stage 1 through stage 4 chronic kidney disease, or unspecified chronic kidney disease (principal); N18.4 Chronic kidney disease, stage 4 (severe); Z20.822 Contact with and (suspected) exposure to COVID-19; Z88.1 Allergy status to other antibiotic agents; Z88.6 Allergy status to analgesic agent; Z88.0 Allergy status to penicillin; Z88.5 Allergy status to narcotic agent
CPT/HCPCS: 80053; 85025; 99283; C9803; U0003

== ENCOUNTER 2021-08-13 15:30 | Emergency (ER) | payer OTHER, MEDICAID ==
[~2021-08-13] VITALS: Ht 160 cm; Wt 137.3 kg
[~2021-08-13 15:30] MED LIST changes: +POTA-121 PO; -POTA20TA4 PO
--- NOTE | 2021-08-13 15:50 | PHYS DOC ---
Past History Past Medical History: Anxiety, Bipolar, Depression, Hypertension, Renal Disease, Other Additional Past Medical Histor: stage 4 kidney disease Past Surgical History: No Surgical History Additional Past Surgical Histo: right knee Alcohol Use: None Drug Use: None Adult General HPI HPI Patient is a 56-year-old female presenting for multiple complaints. First, patient reports coming in for evaluation and she had labs drawn yesterday at [facility]'s office and her potassium was noted to be 3.0. She admits being on furosemide and has been on the same dose chronically without any recent medication changes, has history of hypokalemia in the past requiring medical intervention but has never been hospitalized for this. When she was on the phone being notified of her low potassium level, she disclosed that she had le ft-sided chest pain that occurred yesterday evening shortly after eating food. She reports it was over left breast without radiation, it was moderate severity and lasted for couple minutes before resolving spontaneously. She has not had recurrence of this. Nonetheless, given this history it was recommended that patient come in for evaluation. On arrival to ER, patient has no complaints. She admits history of hyperkalemia as discussed, no significant past medical history of cardiac disease or provocative cardiac testing. Review of Systems Review of Systems Fourteen body systems of review of systems have been reviewed. See HPI for pertinent positives and negative responses, other biggs all other systems are negative, non-pertinent or non-contributory Allergies Allergies Allergies Coded Allergies Type Severity Reaction Last Updated Verified Cephalosporins Allergy Unknown 12/31/16 Yes NSAIDS (Non-Steroidal Anti-Inflamma Allergy Unknown 01/11/21 Yes Penicillins Allergy Unknown 01/11/21 Yes acetaminophen Allergy Unknown 12/31/16 Yes amitriptyline Allergy Unknown 12/31/16 Yes carbamazepine Allergy Unknown 01/11/21 Yes codeine Allergy Unknown 01/11/21 Yes hydrocodone Allergy Unknown 12/31/16 Yes ketorolac Allergy Unknown 12/31/16 Yes oxcarbazepine Allergy Unknown 12/31/16 Yes quetiapine Allergy Unknown 12/31/16 Yes tramadol Allergy Unknown 12/31/16 Yes Uncoded Allergies Type Severity Reaction Last Updated Verified POLYSORBATES Allergy Unknown 01/11/21 RED DYES Allergy Unknown 01/11/21 TARTRAZINE Allergy Unknown 01/11/21 TRICYCLIC ANTIDEPRESSANTS Allergy Unknown 01/11/21 Physical Exam Physical Exam Constitutional: Well developed, well nourished, no acute distress, non-toxic appearance. HENT: Normocephalic, atraumatic, bilateral external ears normal, oropharynx moist, no oral exudates, nose normal. Eyes: PERRLA, EOMI, conjunctiva normal, no discharge. Neck: Normal range of motion, no tenderness, supple, no stridor. Cardiovascular: Heart rate regular, sinus rhythm, no murmurs rubs or gallops Lungs & Thorax: Bilateral breath sounds clear to auscultation Abdomen: Bowel sounds normal, soft, no tenderness, no masses, no pulsatile masses. Nonsurgical abdomen, no peritoneal signs Skin: Warm, dry, no erythema, no rash. Back: No tenderness, no CVA tenderness. Extremities: No tenderness, no cyanosis, no clubbing, ROM intact, no edema. Neurologic: Alert and oriented X 3, grossly normal motor & sensory function, no focal deficits noted. Psychologic: Affect normal, judgement normal, mood normal. Current Patient Data Vital Signs Vital Signs Date Time Temp Pulse Resp B/P (MAP) Pulse Ox O2 Delivery O2 Flow Rate FiO2 08/13/21 16:00 98.0 85 18 110/71 (84) 96 Vital Signs Date Time Temp Pulse Resp B/P (MAP) Pulse Ox O2 Delivery O2 Flow Rate FiO2 08/13/21 16:00 98.0 85 18 110/71 (84) 96 Lab Results Laboratory Tests Test 08/13/21 16:08 White Blood Count 10.1 x10^3/uL Red Blood Count 3.86 x10^6/uL Hemoglobin 12.7 g/dL Hematocrit 38.1 % Mean Corpuscular Volume 99 fL Mean Corpuscular Hemoglobin 33 pg Mean Corpuscular Hemoglobin Concent 33 g/dL Red Cell Distribution Width 15.4 % Platelet Count 246 x10^3/uL Neutrophils (%) (Auto) 62 % Lymphocytes (%) (Auto) 27 % Monocytes (%) (Auto) 8 % Eosinophils (%) (Auto) 3 % Basophils (%) (Auto) 1 % Neutrophils # (Auto) 6.2 x10^3uL Lymphocytes # (Auto) 2.7 x10^3/uL Monocytes # (Auto) 0.8 x10^3/uL Eosinophils # (Auto) 0.3 x10^3/uL Basophils # (Auto) 0.0 x10^3/uL Sodium Level 129 mmol/L Potassium Level 3.3 mmol/L Chloride Level 89 mmol/L Carbon Dioxide Level 30 mmol/L Anion Gap 10 Blood Urea Nitrogen 78 mg/dL Creatinine 2.8 mg/dL Estimated GFR (Cockcroft-Gault) 17.4 Glucose Level 84 mg/dL Calcium Level 9.7 mg/dL Magnesium Level 1.9 mg/dL Troponin I High Sensitivity 13 ng/L Current Medications Medications (Trade) Dose Ordered Sig/Adrian Route PRN Reason Start Time Stop Time Status Last Admin Dose Admin Aspirin (Aspirin Chewable) 162 mg 1X ONCE PO 08/13/21 16:00 08/13/21 16:17 DC 08/13/21 16:56 EKG EKG EKG ordered and interpreted by myself at 1545 hrs. is sinus rhythm at 85 bpm, unremarkable intervals, left axis deviation, no obvious ischemic findings, no STEMI EKG ordered and interpreted by myself 1659 hrs. is sinus rhythm at 81 bpm, prolonged NM at 232, QTc 478 otherwise unremarkable intervals, left axis deviation, no obvious ischemic findings, no STEMI Radiology/Procedures Radiology/Procedures EXAM: CHEST ONE VIEW. HISTORY: Chest pain. COMPARISON: 04/20/2020. FINDINGS: A frontal view of the chest is obtained. There is a new airspace opacity in the left base. There is no pneumothorax or pleural effusion. The heart is not enlarged. IMPRESSION: 1. Left basilar atelectasis or pneumonia. Electronically signed by: Iza Badillo MD (08/13/2021 4:22 PM) [facility] Heart Score C/O Chest Pain: No HEART Score for Chest Pain: HEART Score for Chest Pain Response (Comments) Value History Slighlty/Non-Suspicious 0 ECG Normal 0 Age >45 - < 65 1 Risk Factors 1 or 2 Risk Factors 1 Troponin < Normal Limit 0 Total 2 Risk Factors: Risk Factors: DM, Current or recent (<one month) smoker, HTN, HLP, family history of CAD, obesity. Risk Scores: Risk Factors: DM, Current or recent (<one month) smoker, HTN, HLP, family history of CAD, obesity. Course & Med Decision Making Course & Med Decision Making ABCs unremarkable. I disclosed entirety of ER findings and discussed most likely diagnosis of hypokalemia that was fixed today with supplemental potassium. Patient also had isolated episode of chest pain almost 24 hours ago without recurrence, ER work-up today nonconcerning. Other diagnoses were discussed with patient such as ACS, pulmonary embolism, chest pain and other potentially life- threatening diagnoses but all deemed less likely causes of patient's presentation. Plan of care discussed at length with need for close outpatient follow-up to review today's ER visit stressed. Strict return precautions were also discussed at length with good understanding verbalized by patient. Patient voiced understanding and agreement with the plan. Patient knows to come back for repeat evaluation if concerning signs or symptoms present prior to outpatient follow-up. Hemodynamically stable, ambulatory and well-appearing at time of disposition. Dragon Disclaimer Dragon Disclaimer This electronic medical record was generated, in whole or in part, using a voice recognition dictation system. Departure Departure: Impression: Primary Impression: Hypokalemia Additional Impressions: Chronic renal failure Chest pain Disposition: HOME / SELF CARE / HOMELESS Condition: STABLE Referrals: VINEET BREWER MD (PCP) Additional Instructions: You were seen for chest pain. Your workup did not show any acute abnormalities today, but does not indicate that you do not have underlying cardiovascular disease. Your potassium level which was why you initially presented for evaluation today was 3.3 and corrected with 40 mEq oral potassium. You need to follow-up with your primary care physician by the end of the week for recheck of this lab value. Your chest pain episode which was yesterday and has not recurred since is concerning but as mentioned, there were no emergent or surgical findings. There is little indication for hospitalization at present for this. As such, you do need to follow up with your primary doctor and potentially a surveillance observer for further evaluation and treatment. You should return to the ED if you develop worsening chest pain, shortness of breath, fever, abnormal sweating, leg swelling, or any other new or concerning symptoms. Problem Qualifiers RED MARTIN DO Aug 13, 2021 15:50
[2021-08-13] MEDS ORDERED: ASPIRIN CHEWABLE 81 MG TABLET. PO ONE (16:00)
--- NOTE | 2021-08-13 16:06 | EKG ---
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
--- NOTE | 2021-08-13 16:24 | RAD ---
EXAM: CHEST ONE VIEW. HISTORY: Chest pain. COMPARISON: 04/20/2020. FINDINGS: A frontal view of the chest is obtained. There is a new airspace opacity in the left base. There is no pneumothorax or pleural effusion. The h eart is not enlarged. IMPRESSION: 1. Left basilar atelectasis or pneumonia. Electronically signed by: Iza Badillo MD (08/13/2021 4:22 PM) [facility]
[2021-08-13 16:38] LABS: BASO % 1 % (0-3); EOS # 0.3 x10^3/uL (0.0-0.7); EOS % 3 % (0-3); HEMATOCRIT 38.1 % (36.0-47.0); HEMOGLOBIN 12.7 g/dL (12.0-15.5); LYMPH # 2.7 x10^3/uL (1.0-4.8); LYMPH % 27 % (24-48); MEAN CORPUSCULAR HEMOGLOBIN 33 pg (25-35); MEAN CORPUSCULAR HGB CONC 33 g/dL (31-37); MEAN CORPUSCULAR VOLUME 99 fL (79-100); MONO # 0.8 x10^3/uL (0.0-1.1); MONO % 8 % (0-9); NEUT # 6.2 x10^3uL (1.8-7.7); NEUT % 62 % (31-73); PLATELET COUNT 246 x10^3/uL (140-400); RED BLOOD COUNT 3.86 x10^6/uL (3.50-5.40); RED CELL DISTRIBUTION WIDTH 15.4 % (11.5-14.5); WHITE BLOOD COUNT 10.1 x10^3/uL (4.0-11.0)
[2021-08-13 16:51] LABS: CALCIUM 9.7 mg/dL (8.5-10.1); CREATININE 2.8 mg/dL (0.6-1.0); GFR 17.4; MAGNESIUM 1.9 mg/dL (1.8-2.4); POTASSIUM 3.3 mmol/L (3.5-5.1)
[2021-08-13] MEDS ORDERED: POTASSIUM CHLORIDE 20 MEQ TABLET.ER. PO ONE (17:15)
[2021-08-13 17:37] VITALS: BP 146/81
--- NOTE | 2021-08-13 18:21 | EKG ---
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
== END 2021-08-13 18:12 | disposition home or self-care (01) ==
LOC: ER 15:30
DX: I12.9 Hypertensive chronic kidney disease with stage 1 through stage 4 chronic kidney disease, or unspecified chronic kidney disease (principal); N18.4 Chronic kidney disease, stage 4 (severe); E87.6 Hypokalemia; R07.89 Other chest pain; F41.9 Anxiety disorder, unspecified; F31.9 Bipolar disorder, unspecified; Z88.1 Allergy status to other antibiotic agents; Z88.0 Allergy status to penicillin; Z88.6 Allergy status to analgesic agent; Z88.5 Allergy status to narcotic agent; Z88.8 Allergy status to other drugs, medicaments and biological substances
CPT/HCPCS: 36415; 71045; 80048; 83735; 84484; 85025; 93005; 99285